=== PATIENT | male | born 1995 | race Caucasian/White ===

== ENCOUNTER 2022-12-31 22:46 | Emergency (ER) | payer BC ==
[~2022-12-31] VITALS: Ht 175.3 cm; Wt 80.0 kg
[2022-12-31 22:52] VITALS: BP 103/67
[2022-12-31] MEDS ORDERED: TETANUS,DIPTH,PERTUSS P/F (BOOSTRIX) 0.5 ML VIAL IM ONE (23:00)
--- NOTE | 2022-12-31 23:00 | ED Integumentary General ---
General Stated Complaint: R TRIPP LAC Source: patient Exam Limitations: no limitations History of Present Illness Date Seen by Provider: Dec 31, 2022 Time Seen by Provider: 22:53 Initial Comments 27-year-old male presents emerged department today for right tripp injury. Someone slid into him at a softball game and cut his right tripp. Unclear when his last tetanus shot was. All other systems reviewed and negative except documented per HPI. Voice recognition software was used to help create this chart Allergies and Home Medications Allergies Coded Allergies: No Known Drug Allergies (Unverified , 12/31/22) Patient Home Medication List Home Medication List Reviewed: Yes Review of Systems Review of Systems Constitutional: see HPI Past Bgjqlay-Yawbvz-Dyricu Hx Patient Social History Tobacco Use?: No Use of E-Cig and/or Vaping dev: No Substance use?: No Alcohol Use?: No Physical Exam Vital Signs Vital Signs - First Documented 12/31/22 22:52 Temp 35.7 Pulse 98 Resp 18 B/P (MAP) 103/67 (79) Capillary Refill : General Appearance: WD/WN, no apparent distress Cardiovascular: regular rate, rhythm, no murmur Respiratory: chest non-tender, lungs clear, normal breath sounds Extremities: normal range of motion, other (Laceration as described below) Skin: normal color, other (11 cm laceration right anterior tripp. Neurovascular motor and sensory intact. No obvious tendinous involvement. There is gravelly debris) Procedures/Interventions Wound Location: Lower Extremities Wound Length (cm): 11 Wound's Depth, Shape: sub Q Irrigated w/ Saline (ccs): 1000 Suture: Ethlion, Vicryl Suture Size: 4-0 Number of Sutures: 21 Layer Closure?: 2 Number Deep Layer Sutures: 7 Sterile Dressing Applied?: Yes Progress There was a significant amount of debris in the wound bed. It was irrigated copiously with pressure and all visible debris was removed. Progress/Results/Core Measures Results/Orders My Orders Orders - GEOFF SCOTT Pertuss(Acell),Tet Adult (Boostrix (12/31/22 23:00) Cephalexin Capsule (Keflex Capsule) (12/31/22 23:30) Vital Signs/I&O 12/31/22 22:52 Temp 35.7 Pulse 98 Resp 18 B/P (MAP) 103/67 (79) Departure Communication (Admissions) WoundPatient is hemodynamically stable. Closed with 7 deep stitches, 14 superficial stitches with good cosmetic appearance. No obvious tendon inv olvement. Neurovascular and sensory intact. Tetanus shot updated. Given p.o. Keflex here and discharged with the same. Impression Primary Impression: Laceration of lower leg, right Qualified Codes: S81.811A - Laceration without foreign body, right lower leg, initial encounter Disposition: HOME, SELF-CARE Condition: Stable Departure-Patient Inst. Referrals: TANI PARRY MD (PCP/Family) Primary Care Physician Patient Instructions: Laceration Repair With Stitches ED Add. Discharge Instructions: Your tetanus shot was updated in the emergency department today. Do not perform any stressful activities on the area until stitches are out and for a few days after. Return to the emergency department immediately for drainage looks like pus or redness that spreading up your leg. Take the antibiotics as prescribed until they are gone. Do not submerge the wound in water like pools lakes or hot tubs. Scripts Cephalexin (Cephalexin) 500 Mg Tablet 500 MG PO BID for 10 Days, #20 TAB Prov: GEOFF SCOTT DO 12/31/22 GEOFF SCOTT DO Dec 31, 2022 23:00
[2022-12-31] MEDS ORDERED: CEPHALEXIN 250 MG (KEFLEX) CAP PO STA (23:30)
[2022-12-31] MEDS ORDERED: CEPH500T PO (23:35)
== END 2022-12-31 23:58 | disposition home or self-care (01) ==
LOC: ER FS 22:49
DX: S81.811A Laceration without foreign body, right lower leg, initial encounter (principal); Z23 Encounter for immunization; Y04.8XXA Assault by other bodily force, initial encounter; Y92.320 Baseball field as the place of occurrence of the external cause
CPT/HCPCS: 12034; 90715